=== PATIENT | male | born 1945 | race Caucasian/White ===

== ENCOUNTER 2020-05-16 13:10 | Outpatient (CLI) | payer MEDICARE, OTHER | END 2020-05-16 23:59 | disposition home or self-care (01) | LOC: COV 13:10 | PROVIDERS: ATTEND Family Medicine | DX: M79.10 Myalgia, unspecified site (principal); R53.83 Other fatigue; J02.9 Acute pharyngitis, unspecified; Z20.828 Contact with and (suspected) exposure to other viral communicable diseases ==

== ENCOUNTER 2021-05-25 08:34 | Outpatient (CLI) | payer MEDICARE, OTHER ==
[2021-05-25 09:44] LABS: ALT ALANINE AMINOTRANSFERASE 23 IU/L (10-60); CHOL/HDL RATIO 3.3 (<5.0); CHOLESTEROL 186 mg/dL; CK- CREATINE KINASE 89 IU/L (22-269); CREATININE 0.8 mg/dL (0.6-1.2); GFR - MDRD 94 (>89); HDL CHOLESTEROL 57 mg/dL; LDL CHOLESTEROL,CALCULATED 106 mg/dL; LDL/HDL RATIO 1.9 (<3.6); POTASSIUM 4.4 mmol/L (3.5-5.0); SODIUM 136 mmol/L (135-145); TRIGLYCERIDES 115 mg/dL; VLDL CHOLESTEROL 23 mg/dL
[2021-05-25 12:52] LABS: ESTIMATED AVERAGE GLUCOSE 220 mg/dL (70-100); HEMOGLOBIN A1c% 9.3 % (4.27-6.07)
== END 2021-05-25 08:35 | disposition home or self-care (01) ==
LOC: LAB 08:34
DX: E78.00 Pure hypercholesterolemia, unspecified (principal); E11.9 Type 2 diabetes mellitus without complications; E87.6 Hypokalemia; E87.1 Hypo-osmolality and hyponatremia; N18.2 Chronic kidney disease, stage 2 (mild); D64.9 Anemia, unspecified
CPT/HCPCS: 36415; 80061; 82550; 82565; 83036; 83721; 84132; 84295; 84460

== ENCOUNTER 2024-05-06 13:23 | Emergency (ER) | payer MEDICARE, OTHER ==
[2024-05-06 13:55] VITALS: BP 134/75; O2SAT 97
--- NOTE | 2024-05-06 14:00 | ED Physician Documentation ---
PD HPI OPHTHO - Stated complaint Stated Complaint: RED/SWOLLEN LT EYE, COUGH - History obtained from History obtained from: Patient - History of Present Illness Timing - onset: Yesterday Timing - details: Gradual onset, Still present (worse today) Location: Both (has had congestion and scratchy throat, some cough for 2-3 days, with onset left eye irritation yesterday, with redness that has increased today with crusting/matting and also right eye started symptoms. No light sensitive.) Quality / character: Burning, Aching Associated symptoms: Redness, Swelling, Discharge. No: FB sensation, Photophobia, Decreased vision Contributing factors: Recent URI (currently with some URI symptoms as well prior to eye.). No: Exposed to conjunctivitis Similar symptoms before: Has not had sx before Review of Systems Constitutional: denies: Fever, Chills Eyes: denies: Loss of vision, Photophobia PD PAST MEDICAL HISTORY - Present Medications Home Medications: Ambulatory Orders Medication Instructions Recorded Confirmed Amoxicillin 500 mg PO TID #15 cap 05/06/24 Flurbiprofen Sodium 2 drops EACHEYE TID 4 Days #2.5 ml 05/06/24 Ketotifen Fumarate [Eye Itch 2 drops EACHEYE QID PRN #5 ml 05/06/24 Relief] Polymyxin B/Trimeth Ophth Drop 2 drops EACHEYE QID 4 Days #1 each 05/06/24 [Polytrim Ophth Drops] - Allergies Allergies/Adverse Reactions: Allergies Allergy/AdvReac Type Severity Reaction Status Date / Time No Known Drug Allergies Allergy Verified 05/06/24 13:50 PD ED PE NORMAL - Vitals Vital signs reviewed: Yes - General General: Alert and oriented X 3, No acute distress, Well developed/nourished - HEENT HEENT: PERRL, EOMI, Ears normal, Pharynx benign, Other (conjunctival redness and swelling with some discharge, left more than right.) - Neck Neck: Supple, no meningeal sign, No adenopathy - Cardiac Cardiac: RRR, No murmur - Respiratory Respiratory: Clear bilaterally Results - Vitals Vitals: Vital Signs - 24 hr 05/06/24 13:43 Temperature 36.5 C Heart Rate 76 Respiratory 20 Rate Blood Pressure 134/75 H O2 Saturation 97 Oxygen O2 Source Room air PD Medical Decision Making - ED course Complexity details: considered differential (URI symptoms and then eye discharge/redness. Most likely adenovirus, but treat for potential sinus/eye infection.), d/w patient ED course: The patient has had mild cough and scratchy throat with some sinus pressure and congestion with an green nasal discharge for the past 3 days. 2 days ago he started with bilateral eye irritation and redness predominantly on the left. He has had crusting and matting in the mornings on the left eye. Irritation on the right. Symptoms have increased. He is concerned about "pinkeye". He has tried Visine type drops and saline drops for his eyes and [id number] cough medicine. No history of contact wearing. No underlying lung disease. His eyes do have redness of the conjunctive a. No light sensitivity. Pupils are reactive. The left is more red than the right. Throat is clear. His lungs are clear as well. It does sound likely to be a viral illness with presumption of adenovirus. However distinguishing that from a sinus infection or bacterial concurrent to Vitas is a possibility. His family member as well as the patient both were expressing desire for antibiotic eyedrops. I also suggested the anti- inflammatory and antihistamine eyedrops to help with symptoms. Discussion over antibiotics for possible sinus infection and I went with the short-term course. Departure - Departure Disposition: 01 Home, Self Care Clinical Impression: Conjunctivitis Qualifiers: Conjunctivitis type: acute Acute conjunctivitis type: unspecified Laterality: bilateral Qualified Code(s): H10.33 - Unspecified acute conjunctivitis, bilateral Upper respiratory infection Qualifiers: URI type: unspecified URI Qualified Code(s): J06.9 - Acute upper respiratory infection, unspecified Condition: Stable Record reviewed to determine appropriate education?: Yes Instructions: ED Conjunctivitis Nonspecific Follow-Up: Gaurang Plata MD [Primary Care Provider] - Prescriptions: Amoxicillin 500 mg PO TID #15 cap Ketotifen Fumarate [Eye Itch Relief] 2 drops EACHEYE QID PRN #5 ml PRN Reason: Itching Flurbiprofen Sodium 2 drops EACHEYE TID 4 Days #2.5 ml Polymyxin B/Trimeth Ophth Drop [Polytrim Ophth Drops] 2 drops EACHEYE QID 4 Days #1 each Comments: Your symptoms of congestion, scratchy throat and some cough along with the conjunctivitis makes it sound most likely to be viral. There has been some adenovirus going around that is a upper respiratory and viral infection that also likes to include the eyes and cause conjunctivitis. We can treat the symptoms of this with antihistamine and anti-inflammatory eyedrops. Essentially no harm done adding a antibiotic eyedrop just in case. Unclear whether your other symptoms are generally viral. As discussed consideration could be for sinus infection extending up to the eyes. We can add the oral antibiotic as we discussed for short-term treatment as that usually clears out fairly well. Otherwise symptomatic medication with any lozenges or cough medicine is fine and stay well-hydrated. I sent your prescriptions to the [facility] in [place]. Forms: PCP List Discharge Date/Time: 05/06/24 14:20
[2024-05-06] MEDS: AMOXICILLIN 250 MG CAPSULE PO STA (14:16)
== END 2024-05-06 14:20 | disposition home or self-care (01) ==
LOC: ED 13:23
DX: H10.33 Unspecified acute conjunctivitis, bilateral (principal); J06.9 Acute upper respiratory infection, unspecified
CPT/HCPCS: 99283; A9270